=== PATIENT | female | born 1995 | race Caucasian/White ===

== ENCOUNTER 2023-08-26 21:35 | Emergency (ER) | payer OTHER ==
[~2023-08-26] VITALS: Ht 170.2 cm; Wt 95.3 kg
[2023-08-26 21:47] VITALS: BP 114/72; PULSE 98; RESP 16; TEMP 98.6; O2SAT 100
[2023-08-27] MEDS ORDERED: cefTRIAXone 1,000 MG VIAL ONE (00:22)
[2023-08-27] MEDS ORDERED: LIDOCAINE MPF 1% 5 ML ONE (00:23)
[2023-08-27] MEDS ORDERED: DOXY-487 PO (00:30)
[2023-08-27] MEDS ORDERED: [UNRECOGNIZED DRUG - CODE] LEFT EYE (00:30)
[2023-08-27] MEDS: cefTRIAXone 1,000 MG in LIDOCAINE MPF 1% 2.1 ML IM ONE (00:31)
[2023-08-27] MEDS: KETOROLAC 60 MG/2 ML VIAL IM ONE (00:32)
== END 2023-08-27 00:59 | disposition home or self-care (01) ==
LOC: MED 21:35
DX: H00.014 Hordeolum externum left upper eyelid (principal); Z79.899 Other long term (current) drug therapy
CPT/HCPCS: 96372; 99284; J0696; J1885; J2001

== ENCOUNTER 2023-12-26 22:23 | Emergency (ER) | payer OTHER ==
[~2023-12-26 22:23] MED LIST: DOXY-487 PO; [UNRECOGNIZED DRUG - CODE] LEFT EYE
== END 2023-12-26 23:40 | disposition left against medical advice (07) ==
LOC: MED 22:23
DX: U07.1 COVID-19 (principal); Z53.21 Procedure and treatment not carried out due to patient leaving prior to being seen by health care provider